=== PATIENT | female | born 1980 | race Caucasian/White ===

== ENCOUNTER 2021-07-05 00:21 | Emergency (ER) | payer BC ==
[2021-07-05 00:36] VITALS: BP 118/73
== END 2021-07-05 01:20 | disposition home or self-care (01) ==
LOC: JP.ED 00:21
DX: Z46.6 Encounter for fitting and adjustment of urinary device (principal); Z88.0 Allergy status to penicillin; Z88.2 Allergy status to sulfonamides
CPT/HCPCS: 51702; 99281; 99283-25

== ENCOUNTER 2023-07-05 20:38 | Inpatient (IN) | payer BC ==
[2023-07-05 21:34] LABS: BASOPHILS PERCENT AUTO 0.9 % (0.1-1.3); EOSINOPHILS ABSOLUTE AUTO 0.28 K/uL (0.00-0.40); EOSINOPHILS PERCENT AUTO 2.5 % (0.0-5.4); HEMATOCRIT 49.6 % (34.3-46.0); HEMOGLOBIN 17.2 g/dL (11.2-15.5); IMMATURE GRAN ABSOLUTE AUTO 0.03 K/uL (0.00-0.23); IMMATURE GRAN PERCENT AUTO 0.3 % (0.0-0.7); LYMPHOCYTES ABSOLUTE AUTO 3.14 K/uL (0.8-3.3); LYMPHOCYTES PERCENT AUTO 27.9 % (11.4-47.7); MEAN CORPUSCULAR HEMOGLOBIN 31.6 pg (31.6-35.5); MEAN CORPUSCULAR HGB CONC 34.7 g/dL (31.6-35.5); MEAN CORPUSCULAR VOLUME 91.2 fL (81.4-99.0); MONOCYTES ABSOLUTE AUTO 0.86 K/uL (0.20-0.90); MONOCYTES PERCENT AUTO 7.6 % (3.3-12.6); NEUTROPHILS ABSOLUTE AUTO 6.84 K/uL (1.0-7.6); NEUTROPHILS PERCENT AUTO 60.8 % (40.0-78.1); PLATELET COUNT,PLT 257 K/uL (130-375); RED BLOOD CELL COUNT 5.44 M/uL (3.77-5.24); WHITE BLOOD CELL COUNT,WBC 11.3 K/uL (3.2-11.0)
[2023-07-05 21:44] LABS: ALANINE AMINOTRANSFERASE,ALT 21 U/L (12-78); ALBUMIN 4.1 g/dL (3.4-5.0); ALKALINE PHOSPHATASE 82 U/L (46-116); ASPARTATE AMNIOTRANSFERASE,AST 19 U/L (15-37); BILIRUBIN TOTAL 0.3 mg/dL (0.2-1.0); BLOOD UREA NITROGEN,BUN 12 mg/dL (7-18); CALCIUM 10.5 mg/dL (8.5-10.1); CARBON DIOXIDE,CO2 26 mmol/L (21-32); CHLORIDE,CL 99 mmol/L (100-108); CREATININE 1.1 mg/dL (0.6-1.0); EST CRCL DRUG DOSING (CG) 48.34 mL/min; ESTIMATED GFR 65 mL/min (>60); GLUCOSE RANDOM 119 mg/dL (74-106); POTASSIUM,K 3.6 mmol/L (3.6-5.2); PROTEIN TOTAL,TP 8.4 g/dL (6.4-8.2); SODIUM,NA 136 mmol/L (140-148)
[2023-07-05 21:44] LABS: APPEARANCE,URINE CLOUDY (CLEAR); BILIRUBIN,URINE NEGATIVE (NEGATIVE); COLOR,URINE YELLOW (YELLOW); GLUCOSE,URINE NEGATIVE (NEGATIVE); KETONES,URINE NEGATIVE (NEGATIVE); LEUKOCYTE ESTERASE,URINE NEGATIVE (NEGATIVE); NITRITE,URINE NEGATIVE (NEGATIVE); OCCULT BLOOD,URINE NEGATIVE (NEGATIVE); PH,URINE 7.5 (5.0-8.0); PROTEIN,URINE NEGATIVE (NEGATIVE); UROBILINOGEN,URINE 0.2 EU/dL (0.2-1.0)
[2023-07-05] MEDS: Morphine 2 MG/ML SYRINGE IVPUSH ONE (21:44)
[2023-07-05] MEDS: Ondansetron 4 MG/2 ML SDV IVPUSH ONE (21:45)
[2023-07-05 21:50] LABS: ANION GAP 14.6 mmol/L (5.0-14.0); C-REACTIVE PROTEIN < 0.50 mg/dL (<0.50)
[2023-07-05 21:53] LABS: AMORPHOUS SEDIMENT,URINE MANY; BACTERIA,URINE MODERATE; EPITHELIAL CELLS,URINE RARE; MUCUS,URINE NOT SEEN; RBC,URINE 0-5 (0-5); WBC,URINE 0-5 (0-5)
[2023-07-06] MEDS: Morphine 2 MG/ML SYRINGE IVPUSH ONE (00:02)
[2023-07-06] MEDS ORDERED: Ondansetron 4 MG/2 ML SDV IV PRN (00:45)
[2023-07-06] MEDS ORDERED: LORazepam 2 MG/ML SDV IV PRN (00:45)
[2023-07-06] MEDS ORDERED: Naloxone 0.4 MG/ML SDV IVPUSH PRN (00:45)
[2023-07-06] MEDS ORDERED: Docusate Sodium 100 MG Cap PO PRN ×2 (00:45→10:19)
[2023-07-06] MEDS ORDERED: Bisacodyl 5 MG Tab PO PRN (00:45)
[2023-07-06] MEDS ORDERED: Albuterol 0.083% 2.5 MG/3 ML Neb Soln NEB PRN (00:45)
[2023-07-06] MEDS: cefTRIAXone 1 GM in Sodium Chloride 0.9% 50 ML IV SCH (01:12)
[2023-07-06] MEDS: Pantoprazole 40 MG Vial IV ONE (01:12)
[2023-07-06] MEDS: Nicotine 21 MG/24 Hr Patch TRDERM ONE (01:12)
[2023-07-06] MEDS: Sodium Chloride 0.9% 1,000 ML IV SCH (01:18)
[2023-07-06] MEDS: Morphine 2 MG/ML SYRINGE IVPUSH PRN (02:11)
[2023-07-06] MEDS: Levothyroxine 25 MCG Tab PO SCH (07:55)
[2023-07-06] MEDS ORDERED: Glycopyrrolate 0.2 MG/ML 5 ML MDV ONE (08:32)
[2023-07-06] MEDS ORDERED: Dexamethasone 4 MG/ML SDV ONE (08:32)
[2023-07-06] MEDS ORDERED: Rocuronium 50 MG/5 ML Vial ONE (08:32)
[2023-07-06] MEDS ORDERED: Ondansetron 4 MG/2 ML SDV ONE (08:32)
[2023-07-06] MEDS ORDERED: fentaNYL 250 MCG/5 ML SDV ONE (08:32)
[2023-07-06] MEDS ORDERED: Succinylcholine 200 MG/10 ML MDV ONE (08:32)
[2023-07-06] MEDS ORDERED: Neostigmine Methylsulfate 10 MG/10 ML MDV ONE (08:32)
[2023-07-06] MEDS ORDERED: Propofol 200 MG/20 ML SDV ONE (08:32)
[2023-07-06] MEDS ORDERED: fentaNYL 100 MCG/2 ML SDV IVPUSH PRN ×3 (10:19)
[2023-07-06] MEDS ORDERED: Benzocaine/Cetylpyridinium/Menthol Lozenge MUCMEM PRN (10:19)
[2023-07-06] MEDS ORDERED: Zolpidem 5 MG Tab PO PRN (10:19)
[2023-07-06] MEDS ORDERED: hydrOXYzine HCL 100 MG/2 ML SDV IM PRN (10:19)
[2023-07-06] MEDS: Ropivacaine 40 ML, dexAMETHasone 8 MG, EPINEPHrine 0.4 MG, Sodium Chloride 0.9% 37.6 ML NERVRT SCH (10:51)
[2023-07-06] MEDS ORDERED: Scopalamine 1mg/3day Transdermal Patch ONE (10:53)
[2023-07-06] MEDS: Scopalamine 1mg/3day Transdermal Patch TOP ONE (10:53)
[2023-07-06] MEDS ORDERED: fentaNYL 100 MCG/2 ML SDV ONE ×2 (10:55→11:39)
[2023-07-06] MEDS ORDERED: Labetalol 20 MG/4 ML Syringe ONE (10:58)
[2023-07-06] MEDS ORDERED: Indocyanine Green 25 MG SDV ONE (11:02)
[2023-07-06] MEDS: Bupivacaine 0.5%/EPINEPHrine 1:200,000 50 ML MDV ONE (11:15)
[2023-07-06] MEDS: Lidocaine 0.5% 50 ML SDV ONE (11:17)
[2023-07-06] MEDS ORDERED: Lactated Ringers 1,000 ML ONE (11:39)
[2023-07-06] MEDS ORDERED: Simethicone 125 MG Tab.Chew PO PRN (12:38)
[2023-07-06] MEDS: Acetaminophen/HYDROcodone 325-5 MG Tab PO PRN (12:45)
[2023-07-06] MEDS: Acetaminophen/Caffeine 500-65 MG Tab PO PRN (12:45)
[2023-07-06] MEDS: Ondansetron 4 MG/2 ML SDV IVPUSH PRN (12:46)
[2023-07-06] MEDS: Citalopram 20 MG Tab PO SCH (12:46)
[2023-07-06] MEDS: SCOPOLAMINE PATCH CHECK TOP SCH (13:41)
[2023-07-06 14:44] VITALS: BP 113/78; PULSE 88
== END 2023-07-06 15:32 | disposition home or self-care (01) | DRG 263 ==
LOC: JP.ED 20:38 → JP.MS 07-06 00:30
PROVIDERS: ADMIT Hospitalist; ATTEND Surgery
PROC: BF03YZZ Plain Radiography of Gallbladder and Bile Ducts using Other Contrast (ICD-10-PCS; 2023-07-06)
PROC: 0FT44ZZ Resection of Gallbladder, Percutaneous Endoscopic Approach (ICD-10-PCS; principal; 2023-07-06 10:00)
DX: K80.00 Calculus of gallbladder with acute cholecystitis without obstruction (principal); L03.012 Cellulitis of left finger; L03.011 Cellulitis of right finger; E03.9 Hypothyroidism, unspecified; Z88.0 Allergy status to penicillin; Z88.2 Allergy status to sulfonamides; Z90.710 Acquired absence of both cervix and uterus; Z72.0 Tobacco use
CPT/HCPCS: 36415; 76705; 80053; 81001; 83690; 84484; 85025; 86140; 88304; 93005; 99285; A9270-GY; C9113; J0171; J0330; J0696; J1100; J1920; J2270; J2405; J2704; J2710; J2795; J3010; J3490; J7030; J7120